=== PATIENT | female | born 1950 | race Caucasian/White ===

== ENCOUNTER 2020-08-09 15:16 | Inpatient (IN) ==
[2020-08-09 16:12] LABS: Bilirubin,Urine Negative (Negative); Blood,Urine Negative (Negative); Clarity,Urine Clear (Clear); Color,Urine Yellow (Yellow); Glucose,Urine (UA) Normal (Normal); Ketones,Urine Negative (Negative); Leukocyte Esterase,Urine Trace (Negative); Mucus,Urine Few per lpf (None-Few); Nitrite,Urine Negative (Negative); PH,Urine 6.5 pH Units (5.0-8.0); Protein,Urine Trace mg/dL (Neg-Trace); Specific Gravity,Urine 1.024 (1.010-1.025); Squamous Epithelial Cell,Urine Few per hpf (None-Few); Urobilinogen,Urine Normal (Normal)
[2020-08-09 16:53] LABS: Basophils % 0.2 %; Hematocrit 38.2 % (35.3-44.9); Hemoglobin 12.2 g/dL (11.5-15.4); INR 2.3; Immature Granulocytes % 0.9 % (0-4); Lymphocytes # 0.6 K/mcL (0.6-4.6); Lymphocytes % 4.1 %; Mean Corpuscular HGB Conc 31.9 g/dL (31.6-35.5); Mean Corpuscular Hemoglobin 32.2 pg (28.0-33.3); Mean Corpuscular Volume 100.8 fL (83.0-100.0); Mean Platelet Volume 10.3 fL (9.4-12.4); Monocytes # 1.3 K/mcL (0.0-1.3); Monocytes % 9.3 %; Platelet Count 187 K/mcL (140-400); Prothrombin Time 26.1 Seconds (9.4-12.1); Red Blood Count 3.79 M/mcL (3.82-4.97); Red Cell Distribution Width 12.4 % (11.5-14.5); Segmented Neutrophils % 85.5 %
[2020-08-09 16:54] LABS: VBG Ionized Calcium 1.12 mmol/L (1.15-1.35)
[2020-08-09] MEDS ORDERED: 0.9 % Sodium Chloride 1,000 ML IV ONE (17:17)
[2020-08-09 17:22] LABS: Alanine Aminotransferase 17 Units/L (7-52); Albumin 4.2 g/dL (3.5-5.7); Albumin/Globulin Ratio 1.3 (1.1-2.2); Alkaline Phosphatase 115 Units/L (34-104); Aspartate Amino Transferase 25 Units/L (13-39); BUN/Creatinine Ratio 23 (6-26); Bilirubin,Total 0.4 mg/dL (0.3-1.0); Blood Urea Nitrogen 30 mg/dL (8-23); Calcium 8.9 mg/dL (8.6-10.3); Carbon Dioxide 24 mEq/L (23-29); Chloride 106 mEq/L (98-107); Creatine Kinase 147 Units/L (30-223); Globulin 3.2 g/dL (2.4-3.5); Glucose 108 mg/dL (70-105); Magnesium 1.7 mg/dL (1.6-2.6); Osmolality,Calculated 297 (280-300); Phosphorous 1.4 mg/dL (2.7-4.5); Potassium 4.2 mEq/L (3.5-5.1); Sodium 140 mEq/L (136-145); Total Protein 7.4 g/dL (6.4-8.9); Troponin I < 0.03 ng/mL (< 0.04); eGFR For African Americans 49 (> 60); eGFR For Non-African Americans 41 (> 60)
[2020-08-09 17:40] LABS: Ferritin 30 ng/mL (10-120)
[2020-08-09] MEDS ORDERED: Piperacillin/Tazobactam 3.375 GM in Water for inj. (sterile) 20 ML IVP ONE (17:51)
[2020-08-09 17:57] LABS: Adenovirus Not Detected (Not Detect); Bordetella Pertussis Not Detected (Not Detect); Chlamydophila pneumoniae Not Detected (Not Detect); Coronavirus 229E Not Detected (Not Detect); Coronavirus HKU1 Not Detected (Not Detect); Coronavirus NL63 Not Detected (Not Detect); Coronavirus OC43 Not Detected (Not Detect); Human Metapneumovirus Not Detected (Not Detect); Human Rhinovirus/Enterovirus Not Detected (Not Detect); Influenza A Subtype 2009 H1 Not Detected (Not Detect); Influenza B Not Detected (Not Detect); Mycoplasma pneumoniae Not Detected (Not Detect); Parainfluenza Virus 1 Not Detected (Not Detect); Parainfluenza Virus 2 Not Detected (Not Detect); Parainfluenza Virus 3 Not Detected (Not Detect); Parainfluenza Virus 4 Not Detected (Not Detect); Respiratory Syncytial Virus Not Detected (Not Detect); SARS-CoV-2 Not Detected (Not Detect)
[2020-08-09] MEDS ORDERED: Vancomycin 1,500 MG/265 ML IV.SOLN IVPB ONE (18:21)
[2020-08-09] MEDS ORDERED: Naloxone 0.4 MG/ML INJ IVP PRN (18:27)
[2020-08-09] MEDS ORDERED: 0.9 % Sodium Chloride 1,000 ML IVC SCH (18:30)
[2020-08-09] MEDS ORDERED: Perflutren Lipid Microsphere 1.3 ML in 0.9 % Sodium Chloride 8.7 ML IVP PRN (18:31)
[2020-08-09] MEDS ORDERED: Acetaminophen IV 1,000 MG/100 ML INFUS..BTL IVPB ONE (20:55)
[2020-08-10] MEDS: Piperacillin/Tazobactam 3.375 GM in 0.9 % Sodium Chloride Mini Bag 100 ML IVPB SCH ×4 (00:59→23:41)
[2020-08-10] MEDS: *HR* Enoxaparin 100 MG/ML SYRINGE SQ SCH ×2 (06:13→18:05)
[2020-08-10 07:43] LABS: INR 1.9; Prothrombin Time 21.4 Seconds (9.4-12.1)
[2020-08-10 07:44] LABS: Basophils % 0.3 %; Hematocrit 33.7 % (35.3-44.9); Immature Granulocytes % 0.7 % (0-4); Lymphocytes # 1.1 K/mcL (0.6-4.6); Lymphocytes % 9.2 %; Mean Corpuscular HGB Conc 31.5 g/dL (31.6-35.5); Mean Corpuscular Hemoglobin 32.4 pg (28.0-33.3); Mean Corpuscular Volume 103.1 fL (83.0-100.0); Mean Platelet Volume 10.4 fL (9.4-12.4); Monocytes # 0.9 K/mcL (0.0-1.3); Monocytes % 7.7 %; Neutrophils # 9.7 K/mcL (1.6-8.9); Platelet Count 142 K/mcL (140-400); Red Blood Count 3.27 M/mcL (3.82-4.97); Red Cell Distribution Width 12.8 % (11.5-14.5); Segmented Neutrophils % 82.1 %; White Blood Count 11.7 K/mcL (4.3-11.1)
[2020-08-10 07:47] LABS: Hemoglobin 10.6 g/dL (11.5-15.4)
[2020-08-10 08:07] LABS: Calcium 7.7 mg/dL (8.6-10.3); Magnesium 1.7 mg/dL (1.6-2.6); Phosphorous 3.5 mg/dL (2.7-4.5); Troponin I 0.04 ng/mL (< 0.04)
[2020-08-10] MEDS: Vancomycin 1,500 MG/265 ML IV.SOLN IVPB SCH (08:29)
[2020-08-10] MEDS: Acetaminophen 325 MG TABLET PO PRN ×2 (11:51→23:40)
[2020-08-10 14:18] LABS: Hematocrit 30.6 % (35.3-44.9)
[2020-08-10] MEDS ORDERED: Warfarin perPT PO PRN (18:00)
[2020-08-10] MEDS ORDERED: *HR* Warfarin 7.5 MG TABLET PO ONE (18:00)
[2020-08-10] MEDS: CLOBAZAM 10 MG PO SCH (20:32)
[2020-08-10] MEDS ORDERED: CARBAMAZEPINE 600 MG PO SCH (21:00)
[2020-08-11] MEDS: Vancomycin 1,500 MG/265 ML IV.SOLN IVPB SCH (06:13)
[2020-08-11] MEDS: *HR* Enoxaparin 100 MG/ML SYRINGE SQ SCH (06:16)
[2020-08-11 06:31] LABS: Basophils % 0.4 %; Eosinophils % 0.2 %; Hematocrit 28.8 % (35.3-44.9); Hemoglobin 9.3 g/dL (11.5-15.4); Immature Granulocytes % 0.4 % (0-4); Lymphocytes # 1.2 K/mcL (0.6-4.6); Lymphocytes % 13.3 %; Mean Corpuscular HGB Conc 32.3 g/dL (31.6-35.5); Mean Corpuscular Hemoglobin 33.2 pg (28.0-33.3); Mean Corpuscular Volume 102.9 fL (83.0-100.0); Mean Platelet Volume 10.3 fL (9.4-12.4); Monocytes # 0.6 K/mcL (0.0-1.3); Monocytes % 7.2 %; Platelet Count 114 K/mcL (140-400); Red Cell Distribution Width 12.5 % (11.5-14.5); Segmented Neutrophils % 78.5 %; White Blood Count 8.9 K/mcL (4.3-11.1)
[2020-08-11 06:34] LABS: Prothrombin Time 22.7 Seconds (9.4-12.1)
[2020-08-11 06:53] LABS: Calcium 7.4 mg/dL (8.6-10.3); Phosphorous 2.2 mg/dL (2.7-4.5); Potassium 3.3 mEq/L (3.5-5.1)
[2020-08-11] MEDS ORDERED: Potassium Chloride Elixir 20 MEQ/15 ML UDC PO ONE (08:07)
[2020-08-11] MEDS ORDERED: CARBAMAZEPINE 400 MG PO SCH (09:00)
[2020-08-11] MEDS: Piperacillin/Tazobactam 3.375 GM in 0.9 % Sodium Chloride Mini Bag 100 ML IVPB SCH ×3 (09:04→23:07)
[2020-08-11] MEDS: CLOBAZAM 10 MG PO SCH ×3 (09:06→23:07)
[2020-08-11] MEDS: Acetaminophen 325 MG TABLET PO PRN ×2 (09:28→18:05)
[2020-08-11] MEDS: CarBAMazepine XR (12 hr) 100 MG TAB PO SCH ×2 (09:30→21:20)
[2020-08-11] MEDS ORDERED: Ipratropium/Albuterol Neb 3 ML IH ONE (12:45)
[2020-08-11] MEDS ORDERED: Ipratropium/Albuterol Neb 3 ML IH PRN (12:46)
[2020-08-11] MEDS: Lactobacillus 1 EACH CAP.SPRINK PO SCH ×2 (15:41→21:20)
[2020-08-11] MEDS ORDERED: *HR* Warfarin 7.5 MG TABLET PO ONE (18:00)
[2020-08-11 18:49] LABS: Campylobacter by PCR Not detected (Not detect)
[2020-08-11 18:50] LABS: Adenovirus F 40/41 PCR Not detected (Not detect); Astrovirus PCR Not detected (Not detect); C.difficile Toxin A/B Gene PCR Not detected (Not detect); Cryptosporidium by PCR Not detected (Not detect); Cyclospora cayetanensis PCR Not detected (Not detect); E. coli O157 by PCR Not detected (Not detect); Entamoeba histolytica PCR Not detected (Not detect); Enteroaggregative E.coli(EAEC) Not detected (Not detect); Enteropathogenic E.coli(EPEC) Not detected (Not detect); Enterotoxigenic E.coli (ETEC) Not detected (Not detect); Giardia lamblia PCR Not detected (Not detect); Norovirus GI/GII PCR Not detected (Not detect); Plesiomonas shigelloides PCR Not detected (Not detect); Rotavirus A PCR Not detected (Not detect); Salmonella PCR Not detected (Not detect); Sapovirus PCR Not detected (Not detect); Shig/EnteroinvasiveE coli EIEC Not detected (Not detect); Shigalike tox-prod E coli STEC Not detected (Not detect); Vibrio PCR Not detected (Not detect); Vibrio cholerae PCR Not detected (Not detect); Yersinia enterocolitica PCR Not detected (Not detect)
[2020-08-12 05:33] LABS: Basophils % 0.3 %; Eosinophils # 0.1 K/mcL (0.0-0.6); Eosinophils % 1.1 %; Hematocrit 29.1 % (35.3-44.9); Hemoglobin 9.4 g/dL (11.5-15.4); Immature Granulocytes % 0.5 % (0-4); Lymphocytes # 0.9 K/mcL (0.6-4.6); Lymphocytes % 14.3 %; Mean Corpuscular HGB Conc 32.3 g/dL (31.6-35.5); Mean Corpuscular Hemoglobin 33.3 pg (28.0-33.3); Mean Corpuscular Volume 103.2 fL (83.0-100.0); Mean Platelet Volume 10.3 fL (9.4-12.4); Monocytes # 0.5 K/mcL (0.0-1.3); Monocytes % 7.3 %; Neutrophils # 4.8 K/mcL (1.6-8.9); Platelet Count 110 K/mcL (140-400); Red Blood Count 2.82 M/mcL (3.82-4.97); Red Cell Distribution Width 12.3 % (11.5-14.5); Segmented Neutrophils % 76.5 %; White Blood Count 6.3 K/mcL (4.3-11.1)
[2020-08-12 05:35] LABS: INR 2.5
[2020-08-12 05:51] LABS: BUN/Creatinine Ratio 22 (6-26); Blood Urea Nitrogen 23 mg/dL (8-23); Calcium 7.8 mg/dL (8.6-10.3); Carbon Dioxide 22 mEq/L (23-29); Chloride 113 mEq/L (98-107); Glucose 95 mg/dL (70-105); Osmolality,Calculated 295 (280-300); Potassium 3.6 mEq/L (3.5-5.1); Sodium 141 mEq/L (136-145); eGFR For African Americans > 60 (> 60); eGFR For Non-African Americans 51 (> 60)
[2020-08-12 05:54] LABS: Phosphorous 1.4 mg/dL (2.7-4.5)
[2020-08-12] MEDS: Vancomycin 1,500 MG/265 ML IV.SOLN IVPB SCH (06:40)
[2020-08-12] MEDS ORDERED: Potassium Phosphate 44 MEQ in 0.9 % Sodium Chloride 250 ML IVPB ONE (08:04)
[2020-08-12 08:54] LABS: Immature Reticulocyte % 7.7 % (11.0-38.0); Retculocyte # 0.03 M/mcL (0.05-0.10); Reticulocyte % 1.1 % (1.6-2.8)
[2020-08-12 09:17] LABS: % Iron Saturation 18 % (15-50); Iron 40 mcg/dL (50-170); Lactate Dehydrogenase 218 Units/L (140-271); Transferrin 156 mg/dL (203-362)
[2020-08-12 09:34] LABS: Ferritin 175 ng/mL (10-120)
[2020-08-12 09:44] LABS: Folate > 22.3 ng/mL (3.0-16.0); Vitamin B12 216 pg/mL (250-1100)
[2020-08-12] MEDS: CarBAMazepine XR (12 hr) 100 MG TAB PO SCH ×2 (10:43→22:55)
[2020-08-12] MEDS: Piperacillin/Tazobactam 3.375 GM in 0.9 % Sodium Chloride Mini Bag 100 ML IVPB SCH ×3 (10:43→22:49)
[2020-08-12] MEDS: Lactobacillus 1 EACH CAP.SPRINK PO SCH ×2 (10:43→22:48)
[2020-08-12] MEDS: CLOBAZAM 10 MG PO SCH ×2 (10:44→22:48)
[2020-08-12] MEDS ORDERED: *HR* Warfarin 5 MG TABLET PO ONE (18:00)
[2020-08-13 02:30] LABS: INR 3.1
[2020-08-13 02:34] LABS: Basophils % 0.4 %; Eosinophils # 0.1 K/mcL (0.0-0.6); Hematocrit 28.1 % (35.3-44.9); Hemoglobin 9.1 g/dL (11.5-15.4); Immature Granulocytes % 0.5 % (0-4); Lymphocytes # 0.9 K/mcL (0.6-4.6); Lymphocytes % 16.9 %; Mean Corpuscular HGB Conc 32.4 g/dL (31.6-35.5); Mean Corpuscular Hemoglobin 33.1 pg (28.0-33.3); Mean Corpuscular Volume 102.2 fL (83.0-100.0); Mean Platelet Volume 10.9 fL (9.4-12.4); Monocytes # 0.5 K/mcL (0.0-1.3); Monocytes % 9.1 %; Neutrophils # 3.9 K/mcL (1.6-8.9); Platelet Count 136 K/mcL (140-400); Red Blood Count 2.75 M/mcL (3.82-4.97); Red Cell Distribution Width 12.1 % (11.5-14.5); Segmented Neutrophils % 71.1 %; White Blood Count 5.5 K/mcL (4.3-11.1)
[2020-08-13 02:43] LABS: BUN/Creatinine Ratio 18 (6-26); Blood Urea Nitrogen 18 mg/dL (8-23); Carbon Dioxide 23 mEq/L (23-29); Chloride 112 mEq/L (98-107); Glucose 91 mg/dL (70-105); Osmolality,Calculated 293 (280-300); Potassium 3.8 mEq/L (3.5-5.1); Sodium 141 mEq/L (136-145); eGFR For African Americans > 60 (> 60); eGFR For Non-African Americans 55 (> 60)
[2020-08-13] MEDS ORDERED: ALENDRONATE 70 MG PO SCH (06:30)
[2020-08-13] MEDS: CarBAMazepine XR (12 hr) 100 MG TAB PO SCH (09:02)
[2020-08-13] MEDS: Piperacillin/Tazobactam 3.375 GM in 0.9 % Sodium Chloride Mini Bag 100 ML IVPB SCH (09:03)
[2020-08-13] MEDS: Lactobacillus 1 EACH CAP.SPRINK PO SCH (09:03)
[2020-08-13] MEDS: CLOBAZAM 10 MG PO SCH (09:16)
[2020-08-13] MEDS ORDERED: Potassium Phosphate 44 MEQ in 0.9 % Sodium Chloride 250 ML IVPB ONE (09:57)
[2020-08-13 10:35] VITALS: BP 149/74
[2020-08-13] MEDS ORDERED: FLU Vac QV 20-21 (6Month+)/PF 0.5 ML SYRINGE IM ONE (13:28)
== END 2020-08-13 14:28 | disposition home or self-care (01) | DRG 871 ==
LOC: 3ANU 15:16 → EMEROOARM 15:16 → SUATTDRO 18:38 → 3ANU 20:17
PROVIDERS: ADMIT Internal Medicine; ATTEND Internal Medicine

== ENCOUNTER 2021-02-14 18:20 | Inpatient (IN) ==
[2021-02-14 18:57] LABS: Basophils % 0.8 %; Eosinophils # 0.1 K/mcL (0.0-0.6); Eosinophils % 2.2 %; Hematocrit 37.3 % (35.3-44.9); Hemoglobin 12.4 g/dL (11.5-15.4); Immature Granulocytes % 0.4 % (0-4); Lymphocytes # 1.4 K/mcL (0.6-4.6); Lymphocytes % 27.5 %; Mean Corpuscular HGB Conc 33.2 g/dL (31.6-35.5); Mean Corpuscular Hemoglobin 33.1 pg (28.0-33.3); Mean Corpuscular Volume 99.5 fL (83.0-100.0); Mean Platelet Volume 9.6 fL (9.4-12.4); Monocytes # 0.5 K/mcL (0.0-1.3); Monocytes % 10.2 %; Neutrophils # 2.9 K/mcL (1.6-8.9); Platelet Count 207 K/mcL (140-400); Red Blood Count 3.75 M/mcL (3.82-4.97); Red Cell Distribution Width 11.8 % (11.5-14.5); Segmented Neutrophils % 58.9 %
[2021-02-14 19:18] LABS: BUN/Creatinine Ratio 21 (6-26); Blood Urea Nitrogen 24 mg/dL (8-23); Calcium 9.8 mg/dL (8.6-10.3); Carbon Dioxide 28 mEq/L (23-29); Chloride 105 mEq/L (98-107); Glucose 102 mg/dL (70-105); Osmolality,Calculated 294 (280-300); Potassium 4.3 mEq/L (3.5-5.1); Sodium 140 mEq/L (136-145); eGFR For African Americans 56 (> 60); eGFR For Non-African Americans 46 (> 60)
[2021-02-14 19:19] LABS: Troponin I < 0.03 ng/mL (< 0.04)
[2021-02-14 19:46] LABS: Bacteria,Urine Few per hpf (None-Few); Bilirubin,Urine Negative (Negative); Blood,Urine Negative (Negative); Clarity,Urine Clear (Clear); Color,Urine Light-Yellow (Yellow); Glucose,Urine (UA) Normal (Normal); Ketones,Urine Negative (Negative); Leukocyte Esterase,Urine Moderate (Negative); Mucus,Urine Few per lpf (None-Few); Nitrite,Urine Positive (Negative); PH,Urine 5.5 pH Units (5.0-8.0); Protein,Urine Negative (Neg-Trace); RBC,Urine 0-3 per hpf (0-3); Specific Gravity,Urine 1.013 (1.010-1.025); Squamous Epithelial Cell,Urine Few per hpf (None-Few); Urobilinogen,Urine Normal (Normal); WBC,Urine 15-30 per hpf (0-3)
[2021-02-14] MEDS ORDERED: cefTRIAXone 1,000 MG in Water for inj. (sterile) 10 ML IVP ONE (20:32)
[2021-02-14] MEDS ORDERED: Perflutren Lipid Microsphere 1.3 ML in 0.9 % Sodium Chloride 8.7 ML IVP PRN (21:56)
[2021-02-14] MEDS ORDERED: NON-FORMULARY MEDICATION 1 EACH EACH (Alendronate Sodium [Fosamax] 70 MG Tablet) PO SCH (22:00)
[2021-02-14] MEDS ORDERED: Furosemide 20 MG TABLET PO PRN (22:00)
[2021-02-14] MEDS ORDERED: Naloxone 0.4 MG/ML INJ IVP PRN (22:08)
[2021-02-14] MEDS ORDERED: Acetaminophen 325 MG TABLET PO PRN (22:08)
[2021-02-14] MEDS: CarBAMazepine XR (12 hr) 100 MG TAB PO SCH (23:22)
[2021-02-14] MEDS: Nystatin Cream 15 GM TUBE TP SCH (23:23)
[2021-02-14] MEDS ORDERED: (Clobazam [Onfi] 10 MG Tablet) PO SCH (23:45)
[2021-02-15] MEDS: (Clobazam [Onfi] 10 MG Tablet) PO SCH ×2 (00:21→20:44)
[2021-02-15 01:47] LABS: Hematocrit 37.3 % (35.3-44.9); Hemoglobin 12.6 g/dL (11.5-15.4); Mean Corpuscular HGB Conc 33.8 g/dL (31.6-35.5); Mean Corpuscular Hemoglobin 33.5 pg (28.0-33.3); Mean Corpuscular Volume 99.2 fL (83.0-100.0); Mean Platelet Volume 10.1 fL (9.4-12.4); Platelet Count 195 K/mcL (140-400); Red Blood Count 3.76 M/mcL (3.82-4.97); Red Cell Distribution Width 11.9 % (11.5-14.5); White Blood Count 5.1 K/mcL (4.3-11.1)
[2021-02-15 01:51] LABS: INR 2.2
[2021-02-15 02:08] LABS: BUN/Creatinine Ratio 21 (6-26); Blood Urea Nitrogen 22 mg/dL (8-23); Calcium 9.4 mg/dL (8.6-10.3); Carbon Dioxide 28 mEq/L (23-29); Chloride 106 mEq/L (98-107); Chol/HDL Ratio 3.9 (0-4.9); Cholesterol 235 mg/dL (< 200); Glucose 119 mg/dL (70-105); HDL Cholesterol 60 mg/dL (40-59); LDL Cholesterol,Calculated 139 mg/dL (< 100); Magnesium 1.9 mg/dL (1.6-2.6); Osmolality,Calculated 298 (280-300); Potassium 3.5 mEq/L (3.5-5.1); Sodium 142 mEq/L (136-145); Triglycerides 180 mg/dL (< 150); eGFR For African Americans > 60 (> 60); eGFR For Non-African Americans 51 (> 60)
[2021-02-15 02:09] LABS: % Iron Saturation 26 % (15-50); Iron 82 mcg/dL (50-170); Transferrin 223 mg/dL (203-362)
[2021-02-15] MEDS: clonazePAM 0.5 MG TABLET PO SCH ×2 (02:19→20:45)
[2021-02-15 02:23] LABS: Ferritin 26 ng/mL (10-120)
[2021-02-15 02:29] LABS: Vitamin B12 586 pg/mL (250-1100)
[2021-02-15 02:34] LABS: Vitamin D 25 Hydroxy 21 ng/mL (30-80)
[2021-02-15 05:02] LABS: Estimated Average Glucose 108 mg/dl; Hemoglobin A1C 5.4 %
[2021-02-15] MEDS: CarBAMazepine XR (12 hr) 100 MG TAB PO SCH ×2 (08:51→20:44)
[2021-02-15] MEDS: Cholecalciferol (D-3) 1,000 UNIT (25MCG) TABLET PO SCH (08:51)
[2021-02-15] MEDS: Cyanocobalamin (B-12) 1,000 MCG TABLET PO SCH (08:51)
[2021-02-15] MEDS: Multivit/Ca/Min/Fe/FA 1 TAB TABLET PO SCH (08:51)
[2021-02-15] MEDS: Nystatin Cream 15 GM TUBE TP SCH ×2 (08:58→20:45)
[2021-02-15] MEDS ORDERED: Warfarin perPT PO PRN (18:00)
[2021-02-15] MEDS ORDERED: *HR* Warfarin 7.5 MG TABLET PO ONE (18:00)
[2021-02-15] MEDS ORDERED: clonazePAM 0.5 MG TABLET PO SCH (18:00)
[2021-02-15] MEDS: cefTRIAXone 1,000 MG in 0.9 % Sodium Chloride Mini Bag 100 ML IVPB SCH (20:46)
[2021-02-16 05:48] LABS: INR 2.1; Prothrombin Time 23.6 Seconds (9.4-12.1)
[2021-02-16 06:38] LABS: Hematocrit 36.4 % (35.3-44.9); Hemoglobin 11.8 g/dL (11.5-15.4); Mean Corpuscular HGB Conc 32.4 g/dL (31.6-35.5); Mean Corpuscular Hemoglobin 32.3 pg (28.0-33.3); Mean Corpuscular Volume 99.7 fL (83.0-100.0); Mean Platelet Volume 9.8 fL (9.4-12.4); Platelet Count 173 K/mcL (140-400); Red Blood Count 3.65 M/mcL (3.82-4.97); Red Cell Distribution Width 11.8 % (11.5-14.5); White Blood Count 4.4 K/mcL (4.3-11.1)
[2021-02-16 06:56] LABS: Potassium 3.7 mEq/L (3.5-5.1)
[2021-02-16] MEDS: Cholecalciferol (D-3) 1,000 UNIT (25MCG) TABLET PO SCH (08:08)
[2021-02-16] MEDS: Multivit/Ca/Min/Fe/FA 1 TAB TABLET PO SCH (08:09)
[2021-02-16] MEDS: CarBAMazepine XR (12 hr) 100 MG TAB PO SCH ×2 (08:09→20:25)
[2021-02-16] MEDS: Nystatin Cream 15 GM TUBE TP SCH ×2 (08:10→20:26)
[2021-02-16] MEDS: Cyanocobalamin (B-12) 1,000 MCG TABLET PO SCH (08:10)
[2021-02-16 10:49] LABS: Adenovirus F 40/41 PCR Not detected (Not detect); Astrovirus PCR Not detected (Not detect); C.difficile Toxin A/B Gene PCR Not detected (Not detect); Campylobacter by PCR Not detected (Not detect); Cryptosporidium by PCR Not detected (Not detect); Cyclospora cayetanensis PCR Not detected (Not detect); E. coli O157 by PCR Not detected (Not detect); Entamoeba histolytica PCR Not detected (Not detect); Enteroaggregative E.coli(EAEC) Not detected (Not detect); Enteropathogenic E.coli(EPEC) Not detected (Not detect); Enterotoxigenic E.coli (ETEC) Not detected (Not detect); Giardia lamblia PCR Not detected (Not detect); Norovirus GI/GII PCR Not detected (Not detect); Plesiomonas shigelloides PCR Not detected (Not detect); Rotavirus A PCR Not detected (Not detect); Salmonella PCR Not detected (Not detect); Sapovirus PCR Not detected (Not detect); Shig/EnteroinvasiveE coli EIEC Not detected (Not detect); Shigalike tox-prod E coli STEC Not detected (Not detect); Vibrio PCR Not detected (Not detect); Vibrio cholerae PCR Not detected (Not detect); Yersinia enterocolitica PCR Not detected (Not detect)
[2021-02-16] MEDS ORDERED: *HR* Warfarin 7.5 MG TABLET PO ONE (18:00)
[2021-02-16] MEDS: clonazePAM 0.5 MG TABLET PO SCH (20:25)
[2021-02-16] MEDS: (Clobazam [Onfi] 10 MG Tablet) PO SCH (20:26)
[2021-02-16] MEDS: cefTRIAXone 1,000 MG in 0.9 % Sodium Chloride Mini Bag 100 ML IVPB SCH (20:26)
[2021-02-17 02:52] LABS: Prothrombin Time 22.9 Seconds (9.4-12.1)
[2021-02-17] MEDS: Multivit/Ca/Min/Fe/FA 1 TAB TABLET PO SCH (08:40)
[2021-02-17] MEDS: Cholecalciferol (D-3) 1,000 UNIT (25MCG) TABLET PO SCH (08:40)
[2021-02-17] MEDS: Cyanocobalamin (B-12) 1,000 MCG TABLET PO SCH (08:40)
[2021-02-17] MEDS: CarBAMazepine XR (12 hr) 100 MG TAB PO SCH ×2 (08:41→20:33)
[2021-02-17] MEDS: Nystatin Cream 15 GM TUBE TP SCH ×2 (08:44→20:33)
[2021-02-17] MEDS ORDERED: *HR* Warfarin 5 MG TABLET PO ONE (18:00)
[2021-02-17] MEDS: clonazePAM 0.5 MG TABLET PO SCH (20:33)
[2021-02-17] MEDS: cefTRIAXone 1,000 MG in 0.9 % Sodium Chloride Mini Bag 100 ML IVPB SCH (20:34)
[2021-02-17] MEDS: (Clobazam [Onfi] 10 MG Tablet) PO SCH (22:46)
[2021-02-18 05:54] LABS: INR 1.9; Prothrombin Time 21.3 Seconds (9.4-12.1)
[2021-02-18] MEDS: Cholecalciferol (D-3) 1,000 UNIT (25MCG) TABLET PO SCH (09:05)
[2021-02-18] MEDS: CarBAMazepine XR (12 hr) 100 MG TAB PO SCH ×2 (09:05→21:41)
[2021-02-18] MEDS: Cyanocobalamin (B-12) 1,000 MCG TABLET PO SCH (09:05)
[2021-02-18] MEDS: Multivit/Ca/Min/Fe/FA 1 TAB TABLET PO SCH (09:05)
[2021-02-18] MEDS: Nystatin Cream 15 GM TUBE TP SCH ×2 (09:07→21:42)
[2021-02-18] MEDS ORDERED: *HR* Warfarin 7.5 MG TABLET PO ONE (18:00)
[2021-02-18] MEDS: (Clobazam [Onfi] 10 MG Tablet) PO SCH (21:41)
[2021-02-18] MEDS: cefTRIAXone 1,000 MG in 0.9 % Sodium Chloride Mini Bag 100 ML IVPB SCH (21:41)
[2021-02-18] MEDS: clonazePAM 0.5 MG TABLET PO SCH (21:41)
[2021-02-19 03:06] LABS: INR 1.6; Prothrombin Time 18.2 Seconds (9.4-12.1)
[2021-02-19 06:28] VITALS: BP 109/64
[2021-02-19] MEDS: Cholecalciferol (D-3) 1,000 UNIT (25MCG) TABLET PO SCH (07:55)
[2021-02-19] MEDS: Cyanocobalamin (B-12) 1,000 MCG TABLET PO SCH (07:55)
[2021-02-19] MEDS: Multivit/Ca/Min/Fe/FA 1 TAB TABLET PO SCH (07:55)
[2021-02-19] MEDS: CarBAMazepine XR (12 hr) 100 MG TAB PO SCH (07:55)
[2021-02-19] MEDS: Nystatin Cream 15 GM TUBE TP SCH (07:56)
[2021-02-19] MEDS ORDERED: Lactobacillus 1 EACH CAP.SPRINK PO SCH (21:00)
== END 2021-02-19 11:09 | disposition home or self-care (01) | DRG 690 ==
LOC: 3ANU 18:20 → EMEROOARM 18:20 → SUATTDRO 21:07 → 3ANU 22:33
PROVIDERS: ADMIT Internal Medicine; ATTEND Student in an Organized Health Care Education/Training Program

== ENCOUNTER 2021-03-26 18:26 | Observation (INO) ==
[2021-03-26 19:08] LABS: Basophils % 0.5 %; Eosinophils # 0.1 K/mcL (0.0-0.6); Eosinophils % 1.8 %; Hematocrit 36.2 % (35.3-44.9); Hemoglobin 12.1 g/dL (11.5-15.4); Immature Granulocytes % 0.4 % (0-4); Lymphocytes # 1.6 K/mcL (0.6-4.6); Lymphocytes % 28.5 %; Mean Corpuscular HGB Conc 33.4 g/dL (31.6-35.5); Mean Corpuscular Hemoglobin 32.8 pg (28.0-33.3); Mean Corpuscular Volume 98.1 fL (83.0-100.0); Mean Platelet Volume 9.8 fL (9.4-12.4); Monocytes # 0.7 K/mcL (0.0-1.3); Monocytes % 12.1 %; Neutrophils # 3.2 K/mcL (1.6-8.9); Platelet Count 182 K/mcL (140-400); Red Blood Count 3.69 M/mcL (3.82-4.97); Segmented Neutrophils % 56.7 %; White Blood Count 5.6 K/mcL (4.3-11.1)
[2021-03-26 19:20] LABS: INR 1.7
[2021-03-26 19:32] LABS: BUN/Creatinine Ratio 19 (6-26); Blood Urea Nitrogen 22 mg/dL (8-23); Calcium 9.5 mg/dL (8.6-10.3); Carbon Dioxide 27 mEq/L (23-29); Chloride 105 mEq/L (98-107); Glucose 107 mg/dL (70-105); Osmolality,Calculated 290 (280-300); Potassium 3.9 mEq/L (3.5-5.1); Sodium 138 mEq/L (136-145); Troponin I < 0.03 ng/mL (< 0.04); eGFR For African Americans 55 (> 60); eGFR For Non-African Americans 46 (> 60)
[2021-03-26] MEDS ORDERED: Acetaminophen 325 MG TABLET PO PRN (21:48)
[2021-03-26] MEDS ORDERED: Naloxone 0.4 MG/ML INJ IVP PRN (21:48)
[2021-03-26] MEDS ORDERED: Ondansetron 4 MG/2 ML VIAL IVP PRN (21:48)
[2021-03-26] MEDS ORDERED: Perflutren Lipid Microsphere 1.3 ML in 0.9 % Sodium Chloride 8.7 ML IVP PRN (21:50)
[2021-03-26 22:57] LABS: Adenovirus Not Detected (Not Detect); Bordetella Pertussis Not Detected (Not Detect); Chlamydophila pneumoniae Not Detected (Not Detect); Coronavirus 229E Not Detected (Not Detect); Coronavirus HKU1 Not Detected (Not Detect); Coronavirus NL63 Not Detected (Not Detect); Coronavirus OC43 Not Detected (Not Detect); Human Metapneumovirus Not Detected (Not Detect); Human Rhinovirus/Enterovirus Not Detected (Not Detect); Influenza A Subtype 2009 H1 Not Detected (Not Detect); Influenza B Not Detected (Not Detect); Mycoplasma pneumoniae Not Detected (Not Detect); Parainfluenza Virus 1 Not Detected (Not Detect); Parainfluenza Virus 2 Not Detected (Not Detect); Parainfluenza Virus 3 Not Detected (Not Detect); Parainfluenza Virus 4 Not Detected (Not Detect); Respiratory Syncytial Virus Not Detected (Not Detect); SARS-CoV-2 Not Detected (Not Detect)
[2021-03-26] MEDS: 0.9 % Sodium Chloride 1,000 ML IVC SCH (23:24)
[2021-03-26] MEDS ORDERED: NON-FORMULARY MEDICATION 1 EACH EACH (Alendronate Sodium [Fosamax] 70 MG Tablet) PO SCH (23:45)
[2021-03-26] MEDS ORDERED: Furosemide 20 MG TABLET PO PRN (23:55)
[2021-03-27] MEDS ORDERED: (Clobazam [Onfi] 10 MG Tablet) PO SCH (00:45)
[2021-03-27] MEDS: Lactobacillus 1 EACH CAP.SPRINK PO SCH ×2 (01:30→09:41)
[2021-03-27] MEDS ORDERED: clonazePAM 0.5 MG TABLET PO SCH (01:45)
[2021-03-27] MEDS ORDERED: CarBAMazepine XR (12 hr) 100 MG TAB PO SCH ×2 (01:45→09:00)
[2021-03-27 05:15] LABS: Basophils % 0.5 %; Eosinophils # 0.1 K/mcL (0.0-0.6); Immature Granulocytes % 0.3 % (0-4); Lymphocytes # 1.4 K/mcL (0.6-4.6); Lymphocytes % 23.4 %; Mean Corpuscular HGB Conc 33.3 g/dL (31.6-35.5); Mean Corpuscular Hemoglobin 32.8 pg (28.0-33.3); Mean Corpuscular Volume 98.5 fL (83.0-100.0); Mean Platelet Volume 9.9 fL (9.4-12.4); Monocytes # 0.8 K/mcL (0.0-1.3); Monocytes % 13.4 %; Neutrophils # 3.7 K/mcL (1.6-8.9); Platelet Count 171 K/mcL (140-400); Red Blood Count 3.35 M/mcL (3.82-4.97); Segmented Neutrophils % 61.4 %
[2021-03-27 05:25] LABS: INR 1.8; Prothrombin Time 20.9 Seconds (9.4-12.1)
[2021-03-27 05:39] LABS: Alanine Aminotransferase 14 Units/L (7-52); Albumin 3.7 g/dL (3.5-5.7); Albumin/Globulin Ratio 1.3 (1.1-2.2); Alkaline Phosphatase 84 Units/L (34-104); Aspartate Amino Transferase 19 Units/L (13-39); BUN/Creatinine Ratio 19 (6-26); Bilirubin,Total 0.3 mg/dL (0.3-1.0); Blood Urea Nitrogen 21 mg/dL (8-23); Calcium 8.8 mg/dL (8.6-10.3); Carbon Dioxide 26 mEq/L (23-29); Chloride 108 mEq/L (98-107); Chol/HDL Ratio 3.9 (0-4.9); Cholesterol 202 mg/dL (< 200); Globulin 2.9 g/dL (2.4-3.5); Glucose 104 mg/dL (70-105); HDL Cholesterol 52 mg/dL (40-59); LDL Cholesterol,Calculated 108 mg/dL (< 100); Magnesium 2.1 mg/dL (1.6-2.6); Osmolality,Calculated 295 (280-300); Phosphorous 2.5 mg/dL (2.7-4.5); Potassium 3.8 mEq/L (3.5-5.1); Sodium 141 mEq/L (136-145); Total Protein 6.6 g/dL (6.4-8.9); Triglycerides 209 mg/dL (< 150); eGFR For African Americans 58 (> 60); eGFR For Non-African Americans 48 (> 60)
[2021-03-27 05:40] LABS: Troponin I < 0.03 ng/mL (< 0.04)
[2021-03-27 05:54] LABS: Thyroid Stimulating Hormone 2.618 mcIU/mL (0.340-5.600)
[2021-03-27] MEDS: 0.9 % Sodium Chloride 1,000 ML IVC SCH (09:41)
[2021-03-27 10:06] VITALS: BP 144/96
[2021-03-27] MEDS ORDERED: Nystatin POWDER 30 GM BOTTLE TP PRN (11:19)
[2021-03-27] MEDS ORDERED: *HR* Warfarin 7.5 MG TABLET PO SCH (18:00)
[2021-03-31] MEDS ORDERED: *HR* Warfarin 5 MG TABLET PO SCH (18:00)
== END 2021-03-27 15:55 | disposition home or self-care (01) ==
LOC: CDU 18:26 → EMEROOARM 18:26 → SUATTDRO 21:23 → CDU 22:04
PROVIDERS: ADMIT Student in an Organized Health Care Education/Training Program; ATTEND Internal Medicine

== ENCOUNTER 2022-02-06 17:37 | Inpatient (IN) ==
[2022-02-06 21:04] LABS: Basophils % 0.7 %; Eosinophils # 0.2 K/mcL (0.0-0.6); Eosinophils % 3.8 %; Hematocrit 33.5 % (35.3-44.9); Hemoglobin 11.3 g/dL (11.5-15.4); Immature Granulocytes % 0.2 % (0-4); Lymphocytes # 0.6 K/mcL (0.6-4.6); Lymphocytes % 9.8 %; Mean Corpuscular HGB Conc 33.7 g/dL (31.6-35.5); Mean Corpuscular Hemoglobin 33.6 pg (28.0-33.3); Mean Corpuscular Volume 99.7 fL (83.0-100.0); Mean Platelet Volume 10.2 fL (9.4-12.4); Monocytes # 0.7 K/mcL (0.0-1.3); Monocytes % 11.6 %; Neutrophils # 4.5 K/mcL (1.6-8.9); Platelet Count 191 K/mcL (140-400); Red Blood Count 3.36 M/mcL (3.82-4.97); Segmented Neutrophils % 73.9 %; White Blood Count 6.1 K/mcL (4.3-11.1)
[2022-02-06 21:12] LABS: Bacteria,Urine Few per hpf (None-Few); Bilirubin,Urine Negative (Negative); Blood,Urine Moderate (Negative); Clarity,Urine Ex.Turbid (Clear); Color,Urine Dark-Yellow (Yellow); Glucose,Urine (UA) Normal (Normal); Ketones,Urine Negative (Negative); Leukocyte Esterase,Urine Large (Negative); Mucus,Urine Few per lpf (None-Few); Nitrite,Urine Positive (Negative); Protein,Urine >=300 mg/dL (Neg-Trace); RBC,Urine 15-30 per hpf (0-3); Renal Epithelial Cells,Urine Few per hpf (None-Few); Specific Gravity,Urine > 1.030 (1.010-1.025); Squamous Epithelial Cell,Urine Moderate per hpf (None-Few); Urobilinogen,Urine Normal (Normal); WBC,Urine TNTC per hpf (0-3)
[2022-02-06 21:13] LABS: INR 1.6; Prothrombin Time 17.6 Seconds (9.4-12.1)
[2022-02-06 21:30] LABS: Alanine Aminotransferase 55 Units/L (7-52); Albumin 3.9 g/dL (3.5-5.7); Alkaline Phosphatase 77 Units/L (34-104); Aspartate Amino Transferase 63 Units/L (13-39); BUN/Creatinine Ratio 17 (6-26); Bilirubin,Total 0.4 mg/dL (0.3-1.0); Blood Urea Nitrogen 29 mg/dL (8-23); Calcium 8.7 mg/dL (8.6-10.3); Carbon Dioxide 23 mEq/L (23-29); Chloride 104 mEq/L (98-107); Glucose 116 mg/dL (70-105); Magnesium 2.4 mg/dL (1.6-2.6); Osmolality,Calculated 289 (280-300); Phosphorous 2.5 mg/dL (2.7-4.5); Potassium 4.1 mEq/L (3.5-5.1); Sodium 136 mEq/L (136-145); Total Protein 7.9 g/dL (6.4-8.9); eGFR For African Americans 36 (> 60); eGFR For Non-African Americans 30 (> 60)
[2022-02-06 21:31] LABS: Troponin I < 0.03 ng/mL (< 0.04)
[2022-02-06] MEDS ORDERED: cefTRIAXone 1,000 MG in 0.9 % Sodium Chloride Mini Bag 100 ML IVPB ONE (22:00)
[2022-02-06] MEDS ORDERED: 0.9 % Sodium Chloride 1,000 ML IVC ONE (22:01)
[2022-02-06 23:10] LABS: VBG Ionized Calcium 1.12 mmol/L (1.15-1.35)
[2022-02-07] MEDS ORDERED: *HR* HYDROcodone/Acet 5/325 mg TABLET PO PRN (01:05)
[2022-02-07] MEDS ORDERED: Melatonin 3 MG TABLET PO PRN (01:05)
[2022-02-07] MEDS ORDERED: *HR* OxyCODONE Immed Rel 5 MG TABLET PO PRN (01:05)
[2022-02-07] MEDS ORDERED: Naloxone 0.4 MG/ML INJ IVP PRN (01:05)
[2022-02-07] MEDS ORDERED: Ondansetron ODT 4 MG TAB.RAPDIS SL PRN (01:05)
[2022-02-07] MEDS ORDERED: 0.9 % Sodium Chloride 1,000 ML IVC SCH ×2 (01:15→07:45)
[2022-02-07 06:06] LABS: Hematocrit 32.3 % (35.3-44.9); Hemoglobin 10.9 g/dL (11.5-15.4); Mean Corpuscular HGB Conc 33.7 g/dL (31.6-35.5); Mean Corpuscular Hemoglobin 33.2 pg (28.0-33.3); Mean Corpuscular Volume 98.5 fL (83.0-100.0); Mean Platelet Volume 10.9 fL (9.4-12.4); Platelet Count 185 K/mcL (140-400); Red Blood Count 3.28 M/mcL (3.82-4.97); Red Cell Distribution Width 11.9 % (11.5-14.5); White Blood Count 7.1 K/mcL (4.3-11.1)
[2022-02-07 06:23] LABS: Calcium 8.3 mg/dL (8.6-10.3); Chol/HDL Ratio 5.8 (0-4.9); Magnesium 2.2 mg/dL (1.6-2.6); Phosphorous 2.7 mg/dL (2.7-4.5); Potassium 4.5 mEq/L (3.5-5.1)
[2022-02-07] MEDS ORDERED: Ringers Solution, Lactated 1,000 ML IVC SCH (07:45)
[2022-02-07] MEDS: cefTRIAXone 1,000 MG in 0.9 % Sodium Chloride Mini Bag 100 ML IVPB SCH (08:04)
[2022-02-07] MEDS: Acetaminophen 325 MG TABLET PO PRN (11:33)
[2022-02-07] MEDS ORDERED: *HR* Heparin 5,000 UNIT/ML VIAL SQ SCH (18:00)
[2022-02-07] MEDS ORDERED: Warfarin perPT PO PRN (18:00)
[2022-02-07] MEDS ORDERED: *HR* Warfarin 7.5 MG TABLET PO ONE (18:00)
[2022-02-07 19:29] LABS: Protein/Creatinine Ratio,Urine 1.21 mg/mg (0.00-0.20); Sodium, Urine 71.7 mEq/L
[2022-02-07] MEDS: CarBAMazepine XR (12 hr) 100 MG TAB PO SCH (21:11)
[2022-02-07] MEDS: clonazePAM 0.5 MG TABLET PO SCH (22:03)
[2022-02-08 01:35] LABS: INR 2.5; Prothrombin Time 27.4 Seconds (9.4-12.1)
[2022-02-08 01:42] LABS: Calcium 8.3 mg/dL (8.6-10.3)
[2022-02-08] MEDS: Acetaminophen 325 MG TABLET PO PRN (04:16)
[2022-02-08] MEDS ORDERED: Ringers Solution, Lactated 1,000 ML IVC SCH (07:30)
[2022-02-08] MEDS: CarBAMazepine XR (12 hr) 100 MG TAB PO SCH ×2 (08:45→19:55)
[2022-02-08] MEDS: cefTRIAXone 1,000 MG in 0.9 % Sodium Chloride Mini Bag 100 ML IVPB SCH (08:46)
[2022-02-08] MEDS ORDERED: *HR* Warfarin 5 MG TABLET PO ONE (18:00)
[2022-02-08] MEDS: clonazePAM 0.5 MG TABLET PO SCH (18:23)
[2022-02-09 01:18] LABS: INR 2.1; Prothrombin Time 23.3 Seconds (9.4-12.1)
[2022-02-09 02:01] LABS: Calcium 8.5 mg/dL (8.6-10.3); Potassium 3.9 mEq/L (3.5-5.1)
[2022-02-09] MEDS: CarBAMazepine XR (12 hr) 100 MG TAB PO SCH ×2 (07:47→20:40)
[2022-02-09] MEDS ORDERED: *HR* Warfarin 5 MG TABLET PO ONE (18:00)
[2022-02-09] MEDS: clonazePAM 0.5 MG TABLET PO SCH (18:03)
[2022-02-10 01:57] LABS: INR 1.5; Prothrombin Time 16.6 Seconds (9.4-12.1)
[2022-02-10 02:56] LABS: Calcium 8.8 mg/dL (8.6-10.3)
[2022-02-10] MEDS: CarBAMazepine XR (12 hr) 100 MG TAB PO SCH ×2 (08:22→19:40)
[2022-02-10] MEDS: clonazePAM 0.5 MG TABLET PO SCH (17:08)
[2022-02-10] MEDS ORDERED: *HR* Warfarin 7.5 MG TABLET PO ONE (18:00)
[2022-02-11 01:08] LABS: INR 1.5
[2022-02-11] MEDS: CarBAMazepine XR (12 hr) 100 MG TAB PO SCH ×2 (09:22→21:58)
[2022-02-11 16:20] LABS: Adenovirus Not Detected (Not Detect); Bordetella Pertussis Not Detected (Not Detect); Chlamydophila pneumoniae Not Detected (Not Detect); Coronavirus 229E Not Detected (Not Detect); Coronavirus HKU1 Not Detected (Not Detect); Coronavirus NL63 Not Detected (Not Detect); Coronavirus OC43 Not Detected (Not Detect); Human Metapneumovirus Not Detected (Not Detect); Human Rhinovirus/Enterovirus Not Detected (Not Detect); Influenza A Subtype 2009 H1 Not Detected (Not Detect); Influenza B Not Detected (Not Detect); Mycoplasma pneumoniae Not Detected (Not Detect); Parainfluenza Virus 1 Not Detected (Not Detect); Parainfluenza Virus 2 Not Detected (Not Detect); Parainfluenza Virus 3 Not Detected (Not Detect); Parainfluenza Virus 4 Not Detected (Not Detect); Respiratory Syncytial Virus Not Detected (Not Detect); SARS-CoV-2 Not Detected (Not Detect)
[2022-02-11] MEDS: clonazePAM 0.5 MG TABLET PO SCH (17:13)
[2022-02-11] MEDS: Sodium Bicarbonate 150 MEQ in D5% in Water 1,000 ML IVC SCH (17:41)
[2022-02-11] MEDS ORDERED: *HR* Warfarin 7.5 MG TABLET PO ONE (18:00)
[2022-02-11] MEDS ORDERED: hydrALAZINE 10 MG TABLET PO ONE (21:41)
[2022-02-12] MEDS: Acetaminophen 325 MG TABLET PO PRN (01:36)
[2022-02-12 03:24] VITALS: PULSE 60
[2022-02-12] MEDS: Sodium Bicarbonate 150 MEQ in D5% in Water 1,000 ML IVC SCH (05:36)
[2022-02-12 07:05] LABS: Basophils % 0.9 %; Eosinophils # 0.1 K/mcL (0.0-0.6); Immature Granulocytes % 0.9 % (0-4); Lymphocytes # 1.2 K/mcL (0.6-4.6); Lymphocytes % 28.4 %; Mean Corpuscular HGB Conc 34.5 g/dL (31.6-35.5); Mean Corpuscular Hemoglobin 33.2 pg (28.0-33.3); Mean Corpuscular Volume 96.3 fL (83.0-100.0); Mean Platelet Volume 9.4 fL (9.4-12.4); Monocytes # 0.4 K/mcL (0.0-1.3); Monocytes % 9.8 %; Neutrophils # 2.5 K/mcL (1.6-8.9); Platelet Count 277 K/mcL (140-400); Red Blood Count 3.01 M/mcL (3.82-4.97); Red Cell Distribution Width 11.6 % (11.5-14.5); White Blood Count 4.3 K/mcL (4.3-11.1)
[2022-02-12 07:21] LABS: Calcium 8.7 mg/dL (8.6-10.3); Potassium 4.1 mEq/L (3.5-5.1)
[2022-02-12] MEDS: CarBAMazepine XR (12 hr) 100 MG TAB PO SCH (08:30)
[2022-02-12 10:05] LABS: INR 1.6; Prothrombin Time 17.8 Seconds (9.4-12.1)
[2022-02-12 10:45] VITALS: TEMP 97.7; O2SAT 94
[2022-02-12 11:02] VITALS: BP 135/80
[2022-02-12] MEDS ORDERED: *HR* Warfarin 7.5 MG TABLET PO ONE (18:00)
== END 2022-02-12 12:34 | disposition home health service (06) | DRG 683 ==
LOC: 2ANU 17:37 → EMEROOARM 17:37 → SUATTDRO 02-07 01:07 → 2ANU 02-07 02:17 → SUATTDRO 02-07 10:12 → 2ANU 02-08 08:19
PROVIDERS: ADMIT Internal Medicine; ATTEND Pharmacist